=== PATIENT | female | born 1985 | race African-American/Black ===

== ENCOUNTER 2017-05-16 13:17 | Emergency (ER) | payer SELFPAY ==
[2017-05-16] MEDS ORDERED: BUPIVACAINE HCL 0.5 % INJ/PF 30 ML SDV INJ ONE (13:44)
[2017-05-16] MEDS ORDERED: CLINDAMYCIN HCL 150 MG CAPSULE PO ONE (13:44)
--- NOTE | 2017-05-16 13:52 | ER Document Report ---
ED Oral Problem - General Chief Complaint: Toothache Stated Complaint: TOOTH PAIN Time Seen by Provider: 05/16/17 13:33 TRAVEL OUTSIDE OF THE U.S. IN LAST 30 DAYS: No - HPI Patient complains to provider of: Jaw pain Onset: Last week Onset: Gradual Quality of pain: Achy Context: Fractured tooth. denies: Recent antibiotic use, Recent dental extractions Associated symptoms: Earache Relieved by: Nothing Recently seen / treated by doctor/dentist: No - patient moved her in January and has not f/u witha dentist - Related Data Allergies/Adverse Reactions: latex [Latex] Allergy (Mild, Verified 05/16/17 13:30) irritation Penicillins Allergy (Mild, Verified 05/16/17 13:30) rash Past Medical History - Social History Smoking Status: Unknown if Ever Smoked Family History: Reviewed & Not Pertinent Renal/ Medical History: Denies: Hx Peritoneal Dialysis Past Surgical History: Reports: Hx Section - Immunizations Hx Diphtheria, Pertussis, Tetanus Vaccination: Yes - 07/27/12 Review of Systems - Review of Systems Constitutional: No symptoms reported EENT: See HPI -: Yes All other systems reviewed and negative Physical Exam - Vital signs Vitals: Temp Pulse Resp BP Pulse Ox 98.9 F 69 18 141/91 H 100 05/16/17 13:28 05/16/17 13:28 05/16/17 13:28 05/16/17 13:28 05/16/17 13:28 - HEENT Head: Normocephalic, Atraumatic Mouth/Lips: Normal, Dental fracture - on 32 and 17 Pharynx: No: Peritonsillar abscess, Retropharyngeal abscess, Potential airway comprom. Neck: Normal, Other - no evidence of ludwigs angina - Respiratory Respiratory status: No respiratory distress Chest status: Nontender Breath sounds: Normal Chest palpation: Normal - Cardiovascular Rhythm: Regular Heart sounds: Normal auscultation, S1 appreciated, S2 appreciated - Neurological Neuro grossly intact: Yes Cognition: Normal Orientation: AAOx4 Romina Coma Scale Eye Opening: Spontaneous Eugene Coma Scale Verbal: Oriented Eugene Coma Scale Motor: Obeys Commands Eugene Coma Scale Total: 15 - Skin Skin Temperature: Warm Skin Moisture: Dry Skin Color: Normal Course - Re-evaluation Re-evalutation: 05/16/17 13:49 Presentation is most consistent with likely an infected tooth. Airway is patent. Vitals within normal limits. Patient is able swallow without any difficulty. There is no significant facial swelling. Patient will be started on antibiotics and a limited number of pain medications. I've instructed to follow-up with dentistry as earliest ability for definitive management. Return precautions and follow-up recommendations have been discussed at length. - Vital Signs Vital signs: Temp Pulse Resp BP Pulse Ox 97.9 F 69 20 141/90 H 100 05/16/17 14:28 05/16/17 14:28 05/16/17 14:28 05/16/17 14:28 05/16/17 14:28 Procedures - Additional Procedures dental block Additional Procedures: Other - dental blocK: infra alveolar block on the right and left lower jaw of 2.5cc each with complete resolution of her symptoms, no complications Discharge - Discharge Clinical Impression: Toothache Condition: Good Disposition: HOME, SELF-CARE Additional Instructions: You have been seen for dental pain. It is very important that you follow-up with a dentist for definitive care. Please return if you develop fever greater than 101, swelling in your face, vomiting, difficulty breathing or swallowing, or any other symptoms that are concerning to you. For pain you should take ibuprofen 600 mg every 6 hours as needed. [facility] [address] [place], [place] Friday mornings, by appointment [facility] [address] [place] [address] Formerly [facility] [address] [facility] [address] [facility] (4th) [facility] [address] [email or web address] [address] [place] [address] Friday- 8:00am to 5:00 pm Will see patients from other [facility]. Charges based on income and family size and accepts Medicare, Medicaid, and Insurances Will pull molars [facility] [place] [address] Hours of Operation 8:00 am - 4:30 pm weekdays The following dental offices accept Medicaid: [facility] Dr. Joseph Dr. Umanzor Dr. Zazueta Dr. Watters William Newman, Caitlin, and [facility] oral [facility] Dr. Cano ([place]) Dr. Gomez ([place]) [facility] Drs. Balderrama ([place]) Dr. Franco ([place]) [facility] Dr. Agrawal ([place]) Drs. Peres and ([place]) Medicaid Care Line Prescriptions: Clindamycin HCl 450 mg PO TID 7 Days Forms: Return to Work
[2017-05-16 14:31] VITALS: BP 141/90
== END 2017-05-16 14:31 | disposition home or self-care (01) ==
LOC: ER 13:17
PROC: 3E0T3BZ Introduction of Anesthetic Agent into Peripheral Nerves and Plexi, Percutaneous Approach (ICD-10-PCS; principal; 2017-05-16)
DX: K08.89 Other specified disorders of teeth and supporting structures (principal)
CPT/HCPCS: 99282

== ENCOUNTER 2017-06-03 13:19 | Emergency (ER) | payer SELFPAY ==
[2017-06-03 13:25] VITALS: BP 136/89
[2017-06-03] MEDS ORDERED: BUPIVACAINE HCL 0.5 % INJ/PF 30 ML SDV INJ ONE (13:34)
--- NOTE | 2017-06-03 13:39 | ER Document Report ---
ED Oral Problem - General Chief Complaint: Toothache Stated Complaint: MOUTH PAIN Time Seen by Provider: 06/03/17 13:27 Notes: Patient was seen here on 05/16/2017 and has not been compliant with antibiotics and is here for pain management. She states she has not been able to get an appointment with a dentist, denies f/c/n/v/d/c/abdominal pain. tolerating PO without difficulty, no difficulty swallowing or breathing TRAVEL OUTSIDE OF THE U.S. IN LAST 30 DAYS: No - Related Data Allergies/Adverse Reactions: latex [Latex] Allergy (Mild, Verified 05/16/17 13:30) irritation Penicillins Allergy (Mild, Verified 05/16/17 13:30) rash Past Medical History - Social History Smoking Status: Former Smoker Family History: Reviewed & Not Pertinent Patient has suicidal ideation: No Patient has homicidal ideation: No Renal/ Medical History: Denies: Hx Peritoneal Dialysis Past Surgical History: Reports: Hx Section - Immunizations Hx Diphtheria, Pertussis, Tetanus Vaccination: Yes - 07/27/12 Review of Systems - Review of Systems Constitutional: No symptoms reported EENT: See HPI -: Yes All other systems reviewed and negative Physical Exam - Vital signs Vitals: Temp Pulse BP Pulse Ox 98.0 F 78 136/89 H 98 06/03/17 13:23 06/03/17 13:23 06/03/17 13:23 06/03/17 13:23 - General General appearance: Appears well, Alert In distress: None Notes: PHYSICAL EXAM GENERAL: Alert, interacts well. HEAD: Normocephalic, atraumatic. EYES: Pupils equal, round, and reactive to light. Extraocular movements intact. ENT: Patient with evidence of fractures of 32 and 17 with tenderness to palpation. No evidence of periodontal abscess, gingival inflammation. Oral mucosa moist, tongue midline. Uvula midline. Airway patent. No evidence of tonsillar enlargement, peritonsillar abscess, retropharyngeal abscess. NECK: Full range of motion. Supple. Trachea midline. LUNGS: Clear to auscultation bilaterally, no wheezes, rales, or rhonchi. No respiratory distress. HEART: Regular rate and rhythm. No murmurs, gallops, or rubs. Course - Re-evaluation Re-evalutation: 06/03/17 13:37 Presentation is most consistent with likely an infected tooth. Airway is patent. Vitals within normal limits. Patient is able swallow without any difficulty. There is no significant facial swelling. Patient will be started on antibiotics. I've instructed to follow-up with dentistry as earliest ability for definitive management. Return precautions and follow-up recommendations have been discussed at length. - Vital Signs Vital signs: Temp Pulse Resp BP Pulse Ox 98.0 F 78 136/89 H 98 06/03/17 13:23 06/03/17 13:23 06/03/17 13:23 06/03/17 13:23 Procedures - Additional Procedures dental block Additional Procedures: Other - Dental block: 2.5cc sensorcaine block infraalveolar bilateral lower jaws with complete resolution of her symptoms without complicaitons Discharge - Discharge Clinical Impression: Toothache Condition: Good Disposition: HOME, SELF-CARE Instructions: [facility], Toothache (H) Additional Instructions: [facility] Address: [address] [place] [id number] Forms: Return to Work
== END 2017-06-03 13:55 | disposition home or self-care (01) ==
LOC: ER 13:19
DX: K08.89 Other specified disorders of teeth and supporting structures (principal); T36.96XA Underdosing of unspecified systemic antibiotic, initial encounter; Z91.14 Patient's other noncompliance with medication regimen; Z91.040 Latex allergy status; Z88.0 Allergy status to penicillin; Z87.891 Personal history of nicotine dependence
CPT/HCPCS: 99282

== ENCOUNTER 2017-07-19 06:25 | Emergency (ER) | payer SELFPAY ==
--- NOTE | 2017-07-19 07:09 | ER Document Report ---
HPI - HPI Patient complains to provider of: bodypain, numb right great toe, low back pain Onset: Other - see below Onset/Duration: Persistent Pain Level: 4 Context: 32 yo female c/o generalized shooting pain in upper and lower body for several days with hand swelling. chronic back pain, bilateral heel pain, worse when standing all shift at [employer]. numb right great toe for 6 months. No fever, No IV drug use, No saddle anesthesia. Was asleep in the room, I had to awake her. Moves easily in the bed to sit up for hx and physical. needs work note. Associated Symptoms: None Exacerbated by: Standing, Movement Relieved by: Denies Similar symptoms previously: Yes - low back pain Recently seen / treated by doctor: No - ROS ROS below otherwise negative: Yes Systems Reviewed and Negative: Yes All other systems reviewed and negative - REPRODUCTIVE Reproductive: REPORTS: : Past Medical History - General Information source: Patient - Social History Smoking Status: Never Smoker Frequency of alcohol use: None Drug Abuse: None Occupation: DD Lives with: Spouse/Significant other Family History: Reviewed & Not Pertinent Patient has suicidal ideation: No Patient has homicidal ideation: No - Medical History Notes: thought to have RA but that was ruled out years past. Renal/ Medical History: Denies: Hx Peritoneal Dialysis Past Surgical History: Reports: Hx Section - Immunizations Hx Diphtheria, Pertussis, Tetanus Vaccination: Yes - 07/27/12 Vertical Provider Document - CONSTITUTIONAL Agree With Documented VS: Yes Exam Limitations: No Limitations General Appearance: No Apparent Distress - INFECTION CONTROL TRAVEL OUTSIDE OF THE U.S. IN LAST 30 DAYS: No - HEENT HEENT: Normal ENT Exam - NECK Neck: Supple - RESPIRATORY Respiratory: Breath Sounds Normal, No Respiratory Distress O2 Sat by Pulse Oximetry: 100 - CARDIOVASCULAR Cardiovascular: Regular Rate, Regular Rhythm - BACK Back: Normal Inspection - MUSCULOSKELETAL/EXTREMETIES Musculoskeletal/Extremeties: MAEW, FROM, Tender - plantar bilateral feet fascia , No Edema - NEURO Level of Consciousness: Awake, Alert Deep Tendon Reflexes: 2+ - abe ankle and patellar, dulled sensation to right great toe, normal skin exam of toe, normal temperature and cap refill Course - Re-evaluation Re-evalutation: 07/19/17 22:09 late entry: labs normal except for mild elevation of esr. Tx with jackelin and referral to her md, podiatry for plantar fasciitis - Vital Signs Vital signs: Temp Pulse Resp BP Pulse Ox 98.3 F 64 18 135/92 H 100 07/19/17 06:29 07/19/17 06:29 07/19/17 06:29 07/19/17 06:29 07/19/17 06:29 - Laboratory Result Diagrams: 07/19/17 09:20 07/19/17 09:20 Discharge - Discharge Clinical Impression: Plantar fasciitis, Myalgia Chronic low back pain Qualifiers: Back pain laterality: bilateral Sciatica presence: without sciatica Qualified Code(s): M54.5 - Low back pain Condition: Good Disposition: HOME, SELF-CARE Instructions: Acetaminophen, Anti-Inflammatory Medication ([facility]), Low Back Pain ([facility]), Plantar Fasciitis or Heel Spur ([facility]) Additional Instructions: ice helps plantar fasciitis pain-heels achilles tendon stretches to er if worse call me in 1 hour for the test result, if negative you can take the motrin tylenol for pain Please complete the patient satisfaction survey if you get one, and return it.. If you do not receive a survey, then you can go to the [facility] website, [email or web address] and place your comments about your very good care. Thank you very much. It was a pleasure being your medical provider today. Prescriptions: Ibuprofen [Motrin 800 mg Tablet] 800 mg PO Q8HP PRN #30 tablet PRN Reason: Forms: Return to Work Referrals: MARCIANO SANCHEZ DPM [ACTIVE STAFF] - Follow up as needed NUSRAT SAMANIEGO MD [ACTIVE STAFF] - Follow up as needed JONES AGUILAR MD [ACTIVE STAFF] - Follow up as needed
[2017-07-19] MEDS ORDERED: ACETAMINOPHEN 325 MG TABLET PO ONE (08:45)
[2017-07-19 09:45] LABS: HEMATOCRIT 32.6 % (36.0-47.0); HGB HCT DIFFERENCE 0.4; MEAN CORPUSCULAR HEMOGLOBIN 29.6 pg (27.0-33.4); MEAN CORPUSCULAR HGB CONC 33.9 g/dL (32.0-36.0); MEAN CORPUSCULAR VOLUME 87 fl (80-97); RED BLOOD COUNT 3.73 10^6/uL (3.72-5.28); RED CELL DISTRIBUTION WIDTH 13.8 % (11.5-14.0)
[2017-07-19 10:03] LABS: BASOPHILS % (MANUAL) 0 % (0-2); EOSINOPHILS % (MANUAL) 7 % (0-6); LYMPHOCYTES % (MANUAL) 64 % (13-45); TOTAL CELLS COUNTED 100
[2017-07-19 10:04] LABS: ALANINE AMINOTRANSFERASE 21 U/L (9-52); ALBUMIN 3.8 g/dL (3.5-5.0); ALKALINE PHOSPHATASE 54 U/L (38-126); ANION GAP 8 (5-19); ASPARTATE AMINO TRANSFERASE 15 U/L (14-36); BILIRUBIN,DIRECT 0.3 mg/dL (0.0-0.4); BILIRUBIN,TOTAL 0.6 mg/dL (0.2-1.3); BLOOD UREA NITROGEN 8 mg/dL (7-20); CALCIUM 9.2 mg/dL (8.4-10.2); CARBON DIOXIDE 28 mmol/L (22-30); CHLORIDE 106 mmol/L (98-107); CREATININE RESULT 0.81 mg/dL (0.52-1.25); GLUCOSE 82 mg/dL (75-110); HYPOCHROMASIA 1+; MAGNESIUM 1.5 mg/dL (1.6-2.3); POTASSIUM 4.3 mmol/L (3.6-5.0); SODIUM 142.4 mmol/L (137-145); TOTAL PROTEIN 7.2 g/dL (6.3-8.2)
[2017-07-19 10:05] LABS: C-REACTIVE PROTEIN < 5.0 mg/L (<10.0)
[2017-07-19 10:21] LABS: ERYTHROCYTE SEDIMENTATION RATE 25 mm/hr (0-20)
[2017-07-19 10:53] VITALS: BP 135/77
== END 2017-07-19 10:55 | disposition home or self-care (01) ==
LOC: ER 06:25
DX: M72.2 Plantar fascial fibromatosis (principal); G89.29 Other chronic pain; M54.5 Low back pain; R20.0 Anesthesia of skin; M79.671 Pain in right foot; M79.672 Pain in left foot; M79.1 Myalgia
CPT/HCPCS: 36415; 80053; 83735; 84703; 85025; 85652; 86140; 99283

== ENCOUNTER → 2017-10-15 | Outpatient (CLI) | payer MEDICAID | LOC: LAB 18:04 → MERGE 18:04 | PROVIDERS: ATTEND Nurse Practitioner Acute Care | DX: R10.9 Unspecified abdominal pain (principal); R11.0 Nausea | CPT/HCPCS: 36415; 84702 ==

== ENCOUNTER 2018-02-12 14:43 | Emergency (ER) | payer SELFPAY ==
--- NOTE | 2018-02-12 15:41 | ER Document Report ---
ED General - General Chief Complaint: Asthma Exacerbation Stated Complaint: SHORTNESS OF BREATH Time Seen by Provider: 02/12/18 15:35 Mode of Arrival: Ambulatory Information source: Patient Notes: 32-year-old female complaining of heart racing while at work at [employer] and then she gets lightheaded, sweaty, cannot catch her breath, then she develops left-sided chest pain that radiates across to the right chest and through to the back. She is an ex-smoker. Does not take hormones. No fever or chills. She has had sore throat for 1 week with some body aches. Nonproductive cough. Some nausea. Metered-dose albuterol did not help the symptoms. She is PERC negative. No history of anxiety. No symptoms now. Hx Anemia (lack of iron). TRAVEL OUTSIDE OF THE U.S. IN LAST 30 DAYS: No - Related Data Allergies/Adverse Reactions: latex [Latex] Allergy (Mild, Verified 07/19/17 06:26) irritation Penicillins Allergy (Mild, Verified 07/19/17 06:26) rash Past Medical History - General Information source: Patient - Social History Smoking Status: Former Smoker Frequency of alcohol use: None Drug Abuse: None Occupation: [employer] Lives with: Family Family History: Reviewed & Not Pertinent Pulmonary Medical History: Reports: Hx Asthma - Due to shortness of breath but the metered-dose inhaler is never helped Renal/ Medical History: Denies: Hx Peritoneal Dialysis Past Surgical History: Reports: Hx Section - Immunizations Hx Diphtheria, Pertussis, Tetanus Vaccination: Yes - 07/27/12 Review of Systems - Review of Systems Constitutional: No symptoms reported EENT: No symptoms reported Cardiovascular: See HPI Respiratory: See HPI Gastrointestinal: No symptoms reported Genitourinary: No symptoms reported Female Genitourinary: No symptoms reported Musculoskeletal: No symptoms reported Skin: No symptoms reported Hematologic/Lymphatic: No symptoms reported Neurological/Psychological: No symptoms reported Physical Exam - Vital signs Vitals: Temp Pulse Resp BP Pulse Ox 98.7 F 88 20 132/86 H 98 02/12/18 14:49 02/12/18 14:49 02/12/18 14:49 02/12/18 14:49 02/12/18 14:49 Interpretation: Normal - General General appearance: Appears well, Alert - HEENT Head: Normocephalic, Atraumatic Eyes: Normal Conjunctiva: Normal Pupils: PERRL Tympanic membrane: Normal Mucous membranes: Normal Pharynx: Normal Neck: Supple. No: Lymphadenopathy, Thyromegally - Respiratory Respiratory status: No respiratory distress Chest status: Nontender Breath sounds: Normal Chest palpation: Normal - Cardiovascular Rhythm: Regular Heart sounds: Normal auscultation Murmur: No - Abdominal Inspection: Normal Distension: No distension Bowel sounds: Normal Tenderness: Nontender. No: Tender Organomegaly: No organomegaly - Back Back: Normal, Nontender. No: CVA tenderness - Extremities General upper extremity: Normal inspection, Nontender, Normal color, Normal ROM , Normal temperature General lower extremity: Normal inspection, Nontender, Normal color, Normal ROM , Normal temperature, Normal weight bearing. No: Jahaira's sign - Neurological Neuro grossly intact: Yes Cognition: Normal Orientation: AAOx4 Romina Coma Scale Eye Opening: Spontaneous [place] Coma Scale Verbal: Oriented [place] Coma Scale Motor: Obeys Commands [place] Coma Scale Total: 15 Speech: Normal Motor strength normal: LUE, RUE, LLE, RLE Sensory: Normal - Psychological Associated symptoms: Normal affect, Normal mood - Skin Skin Temperature: Warm Skin Moisture: Dry Skin Color: Normal Skin irregularity: negative: Rash Course - Re-evaluation Re-evalutation: 02/12/18 15:[address] Kirk for workup. The EKG is normal sinus rhythm without ectopy. QT interval is 368 and QTc is 386. CBC hemoglobin is 10.5 which she has been lower than that in the past. 02/12/18 16:40 Rapid strep is negative, urinalysis shows WBCs 25 and no bacteria I will add a urine culture, the white blood cell count is 11.5 with no neutrophil shift, the chemistry is normal. 02/12/18 16:41 Chest x-ray is negative. 02/12/18 16:53 pt takes gingseng supplement for 3 days, adverse rec can be tachycardai 02/12/18 23:07 - Vital Signs Vital signs: Temp Pulse Resp BP Pulse Ox 98.7 F 80 18 125/87 H 100 02/12/18 17:08 02/12/18 17:08 02/12/18 17:08 02/12/18 17:08 02/12/18 17:08 - Laboratory Result Diagrams: 02/12/18 15:45 02/12/18 15:45 Laboratory results interpreted by me: 02/12/18 15:45 WBC 3.5 L RBC 3.68 L Hgb 10.5 L Hct 31.5 L Seg Neutrophils % 33.0 L Lymphocytes % 51.8 H Monocytes % 13.7 H Absolute Neutrophils 1.2 L Discharge - Discharge Clinical Impression: reported palpitations, Shortness of breath, possible side effects from ginseng Anemia Qualifiers: Anemia type: unspecified type Qualified Code(s): D64.9 - Anemia, unspecified Condition: Good Disposition: HOME, SELF-CARE Instructions: Anemia ([facility]), Palpitations (Irregular or Rapid Heartrate) ([facility]), Sore Throat ([facility]) Additional Instructions: Copy of all lab were given to you Referral to Dr. Santos for a possible event patient monitor or Holter monitor Return to the emergency room if symptoms worsen call me in 1 hour for the thyroid test results stop the gingseng extract, it may be causing these symptoms take multipvitamin with iron daily Forms: Return to Work Referrals: RICHARD SANTOS MD [ACTIVE STAFF] - Follow up tomorrow (call for appointment next week for holer monitor or event monitor)
[2018-02-12 15:56] LABS: ABSOLUTE LYMPHOCYTES (AUTO) 1.8 10^3/uL (0.5-4.7); ABSOLUTE MONOCYTES (AUTO) 0.5 10^3/uL (0.1-1.4); ABSOLUTE NEUT (AUTO) 1.2 10^3/uL (1.7-8.2); BASOPHILS % (AUTO) 0.7 % (0-2); EOSINOPHILS % (AUTO) 0.8 % (0-6); HEMATOCRIT 31.5 % (36.0-47.0); HEMOGLOBIN 10.5 g/dL (12.0-15.5); LYMPHOCYTES % (AUTO) 51.8 % (13-45); MEAN CORPUSCULAR HEMOGLOBIN 28.4 pg (27.0-33.4); MEAN CORPUSCULAR HGB CONC 33.1 g/dL (32.0-36.0); MEAN CORPUSCULAR VOLUME 86 fl (80-97); MONOCYTES % (AUTO) 13.7 % (3-13); PLATELET COUNT 204 10^3/uL (150-450); RED BLOOD COUNT 3.68 10^6/uL (3.72-5.28); RED CELL DISTRIBUTION WIDTH 13.5 % (11.5-14.0); TOTAL CELLS COUNTED % (AUTO) 100 %; WHITE BLOOD COUNT 3.5 10^3/uL (4.0-10.5)
--- NOTE | 2018-02-12 16:08 | RADIOLOGY REPORT (SQ) ---
EXAM DESCRIPTION: CHEST 2 VIEWS COMPLETED DATE/TIME: 02/12/2018 3:59 pm REASON FOR STUDY: chest pain COMPARISON: None. EXAM PARAMETERS: NUMBER OF VIEWS: two views TECHNIQUE: Digital Frontal and Lateral radiographic views of the chest acquired. RADIATION DOSE: NA LIMITATIONS: none FINDINGS: LUNGS AND PLEURA: No opacities, masses or pneumothorax. No pleural effusion. MEDIASTINUM AND HILAR STRUCTURES: No masses or contour abnormalities. HEART AND VASCULAR STRUCTURES: Heart normal size. No evidence for failure. BONES: No acute findings. HARDWARE: None in the chest. OTHER: No other significant finding. IMPRESSION: NO ACUTE RADIOGRAPHIC FINDING IN THE CHEST. TECHNICAL DOCUMENTATION: JOB ID: [id number] [employer]- All Rights Reserved Reading location - IP/workstation name: [email or web address]
[2018-02-12 16:23] LABS: ALANINE AMINOTRANSFERASE 24 U/L (9-52); ALBUMIN 3.9 g/dL (3.5-5.0); ALKALINE PHOSPHATASE 66 U/L (38-126); ANION GAP 13 (5-19); ASPARTATE AMINO TRANSFERASE 25 U/L (14-36); BILIRUBIN,DIRECT 0.3 mg/dL (0.0-0.4); BILIRUBIN,TOTAL 0.3 mg/dL (0.2-1.3); BLOOD UREA NITROGEN 11 mg/dL (7-20); CALCIUM 9.1 mg/dL (8.4-10.2); CARBON DIOXIDE 28 mmol/L (22-30); CHLORIDE 103 mmol/L (98-107); GLUCOSE 89 mg/dL (75-110); SODIUM 144.2 mmol/L (137-145); TOTAL PROTEIN 7.8 g/dL (6.3-8.2)
[2018-02-12 17:09] VITALS: BP 125/87
--- NOTE | 2018-02-12 19:30 | EKG REPORT ---
SEVERITY:- NORMAL ECG - SINUS RHYTHM : Confirmed by: Julio Aguilar MD 12-Feb-2018 19:29:10
== END 2018-02-12 17:09 | disposition home or self-care (01) ==
LOC: ER 14:43
DX: R06.02 Shortness of breath (principal); D64.9 Anemia, unspecified; R00.2 Palpitations; R07.9 Chest pain, unspecified; Z91.040 Latex allergy status; Z88.0 Allergy status to penicillin; Z87.891 Personal history of nicotine dependence
CPT/HCPCS: 36415; 71046; 80053; 84443; 84703; 85025; 87070; 87880; 93005; 93010; 99285

== ENCOUNTER 2018-07-01 12:46 | Emergency (ER) | payer SELFPAY ==
--- NOTE | 2018-07-01 13:40 | ER Document Report ---
ED Medical Screen (RME) - General Chief Complaint: Vag Bleeding, +preg <12wks Stated Complaint: ABDOMINAL PAIN Time Seen by Provider: 07/01/18 13:33 Mode of Arrival: Ambulatory Information source: Patient, [facility] Records Notes: 33-year-old female presents with complaint of vaginal bleeding that started 8 hours prior to arrival. Patient had a positive test on June 12, 2018. She reports her last normal period was April 2018. Patient has history of previous ectopic . Pain is located in the left lower quadrant. I have greeted and performed a rapid initial assessment of this patient. A comprehensive ED assessment and evaluation of the patient, analysis of test results and completion of medical decision making process we will be contacted by additional ED providers. General; appears to be in pain Respiratory; no respiratory distress Neuro; alert and oriented x3, normal speech. TRAVEL OUTSIDE OF THE U.S. IN LAST 30 DAYS: No - HPI Onset: Just prior to arrival Onset/Duration: Sudden Quality of pain: Cramping Severity: Moderate Associated Symptoms: Vaginal bleeding Exacerbated by: Denies Relieved by: Denies Similar symptoms previously: Yes Recently seen / treated by doctor: No - Related Data Smoking: Non-smoker Frequency of alcohol use: None Drug Abuse: None Allergies/Adverse Reactions: latex [Latex] Allergy (Mild, Verified 07/01/18 12:49) irritation Penicillins Allergy (Mild, Verified 07/01/18 12:49) rash Past Medical History Pulmonary Medical History: Reports: Hx Asthma - Due to shortness of breath but the metered-dose inhaler is never helped Renal/ Medical History: Denies: Hx Peritoneal Dialysis Past Surgical History: Reports: Hx Section, Hx Orthopedic Surgery - Immunizations Hx Diphtheria, Pertussis, Tetanus Vaccination: Yes - 07/27/12 Physical Exam - Vital signs Vitals: Temp Pulse Resp BP Pulse Ox 98.9 F 88 16 129/88 H 100 07/01/18 12:51 07/01/18 12:51 07/01/18 12:51 07/01/18 12:51 07/01/18 12:51 Course - Vital Signs Vital signs: Temp Pulse Resp BP Pulse Ox 98.9 F 88 16 129/88 H 100 07/01/18 12:51 07/01/18 12:51 07/01/18 12:51 07/01/18 12:51 07/01/18 12:51
[2018-07-01 14:34] LABS: ABSOLUTE EOSINOPHILS # (AUTO) 0.2 10^3/uL (0.0-0.6); ABSOLUTE LYMPHOCYTES (AUTO) 1.4 10^3/uL (0.5-4.7); ABSOLUTE MONOCYTES (AUTO) 0.3 10^3/uL (0.1-1.4); ABSOLUTE NEUT (AUTO) 1.4 10^3/uL (1.7-8.2); BASOPHILS % (AUTO) 0.5 % (0-2); EOSINOPHILS % (AUTO) 5.6 % (0-6); HEMATOCRIT 31.2 % (36.0-47.0); HEMOGLOBIN 10.4 g/dL (12.0-15.5); LYMPHOCYTES % (AUTO) 42.3 % (13-45); MEAN CORPUSCULAR HEMOGLOBIN 29.1 pg (27.0-33.4); MEAN CORPUSCULAR HGB CONC 33.4 g/dL (32.0-36.0); MEAN CORPUSCULAR VOLUME 87 fl (80-97); MONOCYTES % (AUTO) 9.7 % (3-13); PLATELET COUNT 235 10^3/uL (150-450); RED BLOOD COUNT 3.57 10^6/uL (3.72-5.28); RED CELL DISTRIBUTION WIDTH 13.6 % (11.5-14.0); SEGMENTED NEUTROPHILS % (AUTO) 41.9 % (42-78); TOTAL CELLS COUNTED % (AUTO) 100 %; WHITE BLOOD COUNT 3.4 10^3/uL (4.0-10.5)
[2018-07-01 15:02] LABS: ANION GAP 7 (5-19); BLOOD UREA NITROGEN 5 mg/dL (7-20); CARBON DIOXIDE 25 mmol/L (22-30); CHLORIDE 107 mmol/L (98-107); GLUCOSE 84 mg/dL (75-110); POTASSIUM 4.1 mmol/L (3.6-5.0); SODIUM 138.5 mmol/L (137-145)
--- NOTE | 2018-07-01 15:44 | RADIOLOGY REPORT (SQ) ---
EXAM DESCRIPTION: U/S OB TRANSVAGINAL W/O DOP COMPLETED DATE/TIME: 07/01/2018 3:33 pm REASON FOR STUDY: bleeding + preg COMPARISON: None. TECHNIQUE: Transvaginal static and realtime grayscale images acquired of the pelvis. Additional brandy cted spectral and color Doppler images recorded. All images stored on PACs. bHCG: Not available CLINICAL DATES: 01/29/2019 LIMITATIONS: None. FINDINGS: FETUS: Living intrauterine . ULTRASOUND EGA: 7 weeks ULTRASOUND JASMIN: 02/17/2019 CRL: 9.3 mm FHR: Cardiac activity is not identified PRAFUL: Appears normal SUBCHORIONIC BLEED: No SIZE OF BLEED: Not applicable. UTERUS: No masses. No anomalies. CERVICAL LENGTH: 2.1 Closed. RIGHT ADNEXA: Normal ovary with normal vascular flow. No adnexal free fluid. No adnexal masses. LEFT ADNEXA: Left ovary was not visualized. No adnexal free fluid. No adnexal masses. FREE FLUID: None. OTHER: Gestational sac is identified in the lower uterine segment. IMPRESSION: No cardiac activity is identified suggesting intrauterine demise. Clinical correlation and followup is recommended. EGA 7 weeks Trimester of : First - 0 to 13 weeks. TECHNICAL DOCUMENTATION: JOB ID: [id number] [employer]- All Rights Reserved rev-02/20 Reading location - IP/workstation name: [email or web address]
[2018-07-01 16:22] LABS: APPEARANCE,URINE CLEAR; BILIRUBIN,URINE NEGATIVE (NEGATIVE); COLOR,URINE YELLOW; GLUCOSE, URINE NEGATIVE (NEGATIVE); KETONES,URINE NEGATIVE (NEGATIVE); LEUKOCYTE ESTERASE,URINE NEGATIVE (NEGATIVE); NITRITE,URINE NEGATIVE (NEGATIVE); PROTEIN,URINE NEGATIVE (NEGATIVE); URINE SPECIFIC GRAVITY 1.016; UROBILINOGEN,URINE NEGATIVE mg/dL (<2.0)
[2018-07-01] MEDS ORDERED: MORPHINE SULFATE IR 15 MG TABLET PO ONE (16:39)
--- NOTE | 2018-07-01 16:46 | ER Document Report ---
ED General - General Chief Complaint: Vag Bleeding, +preg <12wks Stated Complaint: ABDOMINAL PAIN Time Seen by Provider: 07/01/18 13:33 Mode of Arrival: Ambulatory Notes: Patient is a 33-year-old female presenting to the emergency department for vaginal bleeding. Patient stated vaginal bleeding started around 5:00 this morning and she has passed multiple clots since then. Patient also admits to suprapubic cramping rating it 10 out of 10. Patient states last menstrual period was 04/28/2018 and the last time she was in the ED was when she was told she was . Patient denies follow-up with [facility] or primary care at this time. Patient denies vomiting, shortness of breath, fever, dysuria. Past medical history: Anemia, ectopic with left salpingectomy. Medications: Stated she was supposed to be taking iron for anemia but states she has not for over a year. Allergies: Penicillin, latex Patient denies smoking, alcohol use, illicit drug use. TRAVEL OUTSIDE OF THE [place] IN LAST 30 DAYS: No - Related Data Allergies/Adverse Reactions: latex [Latex] Allergy (Mild, Verified 07/01/18 12:49) irritation Penicillins Allergy (Mild, Verified 07/01/18 12:49) rash Past Medical History - General Information source: Patient, [facility] Records - Social History Smoking Status: Never Smoker Frequency of alcohol use: None Drug Abuse: None Lives with: Spouse/Significant other Family History: Reviewed & Not Pertinent Patient has suicidal ideation: No Patient has homicidal ideation: No Pulmonary Medical History: Reports: Hx Asthma - Due to shortness of breath but the metered-dose inhaler is never helped Renal/ Medical History: Denies: Hx Peritoneal Dialysis Past Surgical History: Reports: Hx Section, Hx Orthopedic Surgery - Immunizations Hx Diphtheria, Pertussis, Tetanus Vaccination: Yes - 07/27/12 Review of Systems - Review of Systems Constitutional: See HPI EENT: No symptoms reported Cardiovascular: See HPI Respiratory: No symptoms reported Gastrointestinal: See HPI Genitourinary: See HPI Female Genitourinary: See HPI Musculoskeletal: See HPI Skin: No symptoms reported Hematologic/Lymphatic: No symptoms reported Neurological/Psychological: No symptoms reported Physical Exam - Vital signs Vitals: Temp Pulse Resp BP Pulse Ox 98.9 F 88 16 129/88 H 100 07/01/18 12:51 07/01/18 12:51 07/01/18 12:51 07/01/18 12:51 07/01/18 12:51 - Notes Notes: GENERAL: Alert, interacts well. Holding suprapubic area, obviously uncomfortable HEAD: Normocephalic, atraumatic. EYES: Pupils equal, round, and reactive to light. Extraocular movements intact. ENT: Oral mucosa moist, tongue midline. NECK: Full range of motion. Supple. Trachea midline. LUNGS: Clear to auscultation bilaterally, no wheezes, rales, or rhonchi. No respiratory distress. HEART: Regular rate and rhythm. No murmur ABDOMEN: Soft, Non-distended. Bowel sounds present in all 4 quadrants. Tenderness suprapubic region. EXTREMITIES: Moves all 4 extremities spontaneously. No edema, normal radial and dorsalis pedis pulses bilaterally. No cyanosis. BACK: no cervical, thoracic, lumbar midline tenderness. No saddle anesthesia, normal distal neurovascular exam. NEUROLOGICAL: Alert and oriented x3. Normal speech. . PSYCH: Normal affect, normal mood. SKIN: Warm, dry, normal turgor. No rashes or lesions noted. Course - Re-evaluation Re-evalutation: Pelvic exam done-bright red blood in cul-de-sac, os open, no tissues in os at this time. Discussed US and lab results with Pt, she understands need to f/u with OBGYN for repeat HCG and possible D and C. Pt. stated she does not have OBGYN in area. Discussed Pt. presenting with Dr. Salvador Carlos who recommends f/u in his office tomorrow. Talked to the Pt. about need to also get a PCP to continue to monitor her anemia. Return precautions given. - Vital Signs Vital signs: Temp Pulse Resp BP Pulse Ox 99.3 F 84 16 130/84 H 100 07/01/18 18:57 07/01/18 18:57 07/01/18 18:57 07/01/18 18:57 07/01/18 18:57 - Laboratory Result Diagrams: 07/01/18 14:10 07/01/18 14:10 Laboratory results interpreted by me: 07/01/18 07/01/18 07/01/18 14:10 14:10 14:15 WBC 3.4 L RBC 3.57 L Hgb 10.4 L Hct 31.2 L Seg Neutrophils % 41.9 L Absolute Neutrophils 1.4 L BUN 5 L Beta HCG, Quant 2295.90 H Urine HCG, Qual POSITIVE H Discharge - Discharge Clinical Impression: Miscarriage Anemia Qualifiers: Anemia type: unspecified type Qualified Code(s): D64.9 - Anemia, unspecified Condition: Stable Disposition: HOME, SELF-CARE Additional Instructions: As we discussed you must follow-up with Dr. Salvador Carlos in his office in the next 24 hours. His office information will be within this paperwork. Please return to the emergency room should your vaginal bleeding increased, you get lightheaded or dizzy, passed out, have chest pain or shortness of breath, or any other concerning symptoms. Prescriptions: Hydrocodone/Acetaminophen [[place] 5-325 mg Tablet] 1 tab PO PRN PRN 3 Days #12 tablet PRN Reason: Referrals: SALVADOR CARLOS MD [ACTIVE STAFF] - Follow up as needed
[2018-07-01 18:59] VITALS: BP 130/84
== END 2018-07-01 18:59 | disposition home or self-care (01) ==
LOC: ER 12:46
DX: O03.9 Complete or unspecified spontaneous abortion without complication (principal); D64.9 Anemia, unspecified; Z88.0 Allergy status to penicillin; Z91.040 Latex allergy status
CPT/HCPCS: 36415; 76817; 80048; 81001; 81025; 84702; 85025; 86900; 86901; 88305; 99284